=== PATIENT | male | born 1955 | race Caucasian/White ===

== ENCOUNTER → 2017-11-20 | Outpatient (CLI) | payer OTHER ==
[~2017-11-20] MED LIST: ASPIR 8181 M1 PO; AZOR 5-40 MG T1 EACH; CIPROFLOXACIN500 M1 PO; FISH OIL 1,001000 M2 PO; FLAGYL500 M1 PO; FLEXERIL PO; HYDROCODONE-AP1 EA11 PO; HYDROCODONE-APA1 TA1 PO; MOBIC15 MG PO; MULTIVITAMINS1 EAC7 PO; NAPROSYN375 MG PO; NORCO 7.5-3251 EACH PO; PERCOCET 5-3251 EACH PO; PERCOCET 7.5-31 EACH PO; PREDNISONE 20 M20 MG PO; ROBAXIN500 MG PO; UNICOMPLEX M TA1 TA1 PO; VICODIN 5-5001 EACH PO; VITAMINC500 PO
--- NOTE | 2017-12-05 08:37 | PAINCON ---
[address] [address] PAIN MANAGEMENT CONSULTATION Name: NATE CELAYA Room: [facility] Kurt#: [id number] Admission: 11/20/17 Attend Phys: Bere Coley MD Discharge: Date of : 53 Report #: [id number] THIS REPORT FOR: //name// CC: Rhona Coley DATE OF SERVICE: 11/20/2017 CHIEF COMPLAINT: Return of pain down into the left leg. FOLLOWUP HISTORY: The patient is a 62-year-old gentleman who has been seen in the pain clinic in the past by Dr. Mauricio Dueñas. This is my first visit with the patient. He has a history of lumbar radicular pain. He has undergone epidural steroid injections in the past and gleaned benefits from these. He has noticed that his pain has increased over the last few months. It involves his low back with radiation down into his leg. The patient states that he has been working. He has somewhat heavy items. The plywood that he was moving exacerbated his discomfort. He denies any trauma. No change in bowel or bladder function. He was given Flexeril and Camden at the clinic. Pain continues to be problematic. He would like to proceed with another epidural steroid injection. He rates his pain as a 4-5/10. ALLERGIES: No known drug allergies. CURRENT MEDICATIONS: Aspirin 81 mg, hydrocodone 7.5 mg 1 q.6 hours p.r.n., meloxicam 15 mg, multivitamins, Flexeril 10 mg p.r.n. PAST MEDICAL HISTORY: Hypertension, kidney disease. PAST SURGICAL HISTORY: Right rotator cuff surgery on 06/2012, left rotator cuff 07/2007, umbilical hernia repair. 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 REVIEW OF SYSTEMS: Questionnaire generally good health, wears glasses, ringing in the ears, back pain, joint pain, head injury, memory loss/confusion. LABORATORY DATA: 1. MRI dated 07/05/2017 shows L4-L5 posterior disk contour appears normal at the midline. A 16 mm AP thecal sac diameter. Both foramen are minimally narrowed by minimal component of disk bulge at each foramen and developmentally, mildly narrowed configuration. 2. L5-S1. Small diffuse posterior disk bulge identified with moderate size broad-based left paracentral disk protrusion causing significant appearing mass effect on the left lateral recess. The foramen are not grossly narrowed. The thecal sac midline AP diameter is 14 mm. [place] [address] PAIN MANAGEMENT CONSULTATION Name: YOMINATE Dameon Room: [facility]#: [id number] Admission: 11/20/17 Attend Phys: Bere Coley MD Discharge: Date of : 53 Report #: [id number] minimally narrowed. PAIN CLINIC PAIN CLINIC ASSESSMENT: 1. History of osteoarthritis, the patient states that he has not been treated for osteoarthritis. 2. Height 5 feet 11 inches, weight 227 pounds, BMI is 31.6. 3. Vital signs: Blood pressure 138/78, heart rate 66, respiratory rate 16, room air saturation 96%, temperature 98.8. 4. Pain intensity 07/29. 5. Fall risk. The patient has not fallen, but did trip while moving plywood and bruised his right arm. 6. Blood thinner. The patient is on a blood thinning medication. 7. Hypertension. The patient is not being treated for hypertension. 8. Opioid medications greater than 6 weeks. The patient is not on a chronic opioid use. 9. Risk assessment tool. The patient is not that significant risk for using opioid medication. 10. Functional assessment tool. 11. Recreational drug use. The patient denies use of recreational drugs. 12. Tobacco: The patient stopped 15 years ago, has a 61-vgxy-mivp history. 13. Alcohol: The patient denies use of alcoholic beverages. PHYSICAL EXAMINATION: GENERAL: The patient is a well-developed white male, appears his stated age. He is alert and oriented x 3. His affect is appropriate. Speech is fluent. HEENT: Normocephalic, atraumatic. Extraocular eye muscles intact. The patient wears glasses. Mucous membranes are moist. NECK: Without JVD, bruits, or adenopathy. CHEST: Clear to auscultation. HEART: Regular rate. History of bradycardia with heart rates in the 40s-50s. ABDOMEN: Nontender. EXTREMITIES: Upper extremity muscle strength is judged to be 5/5 for the major muscle groups in the upper extremity. Lower extremity. The patient has muscle strength is 5/5 for the major muscle groups. The patient has pain and discomfort, his low back with pain is radiating down into the left L5-S1 dermatomal distribution. Perceives pain down in the calf of his leg. IMPRESSION: Lumbar radiculopathy. RECOMMENDATIONS: We discussed treatment options with the patient. Risks and benefits of an epidural steroid injection were reviewed. Possible complication of the procedure, which could include but are not limited to infection, increased muscle soreness, headache, bleeding, worsening of pain, no improvement in pain, paralysis were discussed. The patient elects to proceed. PROCEDURE NOTE: The patient was taken to the examination area. [place] [address] PAIN MANAGEMENT CONSULTATION Name: LUIS MIGUELSARAI MAKIOTHY Dameon Room: [facility]#: [id number] Admission: 11/20/17 Attend Phys: Bere Coley MD Discharge: Date of : 53 Report #: [id number] in getting on the table. He was placed in the prone position. His back was sterilely prepped with a prepped with a Betadine solution. 0.25% bupivacaine was infiltrated in the low back area in the left paramedian area. A 0.25% bupivacaine was then infiltrated. A 17-gauge Tuohy with loss of resistance technique using a left paramedian approach was undertaken. Anterior, posterior as well as lateral viewing to confirm appropriate placement. Total of 80 mg Depo-Medrol, 40 mg triamcinolone and 2 mL of 0.25% bupivacaine was injected. The patient tolerated the procedure well. He remained in the pain clinic for an appropriate amount of time. He will follow up in the future as needed. A script for Mobic 15 mg q.i.d., Camden 7.5 mg, Flexeril 10 mg have been written. The patient will call us if he has any concerns. <ELECTRONICALLY SIGNED> By: Bere Coley MD 12/05/17 [id number]. Darshan Coley MD /nt
== END | disposition home or self-care (01) ==
LOC: M.PC 02:15
DX: M54.16 Radiculopathy, lumbar region (principal); G89.29 Other chronic pain; I10 Essential (primary) hypertension; N28.9 Disorder of kidney and ureter, unspecified; Z79.899 Other long term (current) drug therapy; Z79.82 Long term (current) use of aspirin; Z98.890 Other specified postprocedural states